=== PATIENT | male | born 1935 | race Caucasian/White ===

== ENCOUNTER 2017-05-15 06:59 | Emergency (ER) | payer OTHER ==
[~2017-05-15] VITALS: Ht 182.8 cm; Wt 108.9 kg
[~2017-05-15 06:59] MED LIST: ARICEPT10 MG PO; ARTIFICIAL TEAR15 M1 OPH; ASPIRIN CHILDRE80 MG PO; ASPIRIN81 M1; B12100 MC1 PO; BACTROBAN CREAM15 GM PO; CHEWABLE ASPIRI81 MG PO; CIPRO500 MG PO; EXEL13.31 T; EYE DROPS; GABARONE100 MG PO; KEFLEX500 MG PO; LAC HYDRIN TP; MAALOX UD SUSP.30 ML PO; MOM30 ML PO; MOTRIN400 MG PO; NAMENDA-28 PO; NAMENDA10 MG PO; NEURONTIN100 MG PO; NORCO 325 MG-51 TAB PO; PRINIVIL5 MG PO; REFRESH LIQUIGE30 ML OP; RISPERDAL0.5 MG PO; RISPERDAL1 M1 PO; RISPERDAL1 MG/ML PO; SEROQUEL50 MG PO; TOBRADEX 0.3-0.15 ML OPH; TYLENOL325 M2 PO; TYLENOL650 MG PO; TYLENOL650 MG R; VICODIN 5/500 505 MG PO; VITAMIN D50000 I2 PO; VITAMIN D50000 UNIT PO; ZANTAC 300300 MG PO; [UNRECOGNIZED DRUG - OTHER] OP
[2017-05-15 07:36] LABS: BILIRUBIN 1+ (NEGATIVE); BLOOD 3+ (NEGATIVE); CLARITY CLOUDY (CLEAR); COLOR YELLOW (YELLOW); GLUCOSE NEGATIVE (NEGATIVE); KETONE NEGATIVE (NEGATIVE); LEUKO ESTERASE 2+ (NEGATIVE); NITRITE NEGATIVE (NEGATIVE); PH 6.5 (5.0-9.0); SPECIFIC GRAVITY 1.015 (1.005-1.030); UROBILINOGEN 0.2 E.U./dl (0.2-1.0)
[2017-05-15 07:38] LABS: HEMOGLOBIN 12.6 g/dl (14.0-18.0); MEAN CELL VOLUME 100.5 fl (80.0-94.0); MEAN CORPUSCULAR HGB 32.5 pg (27.0-31.0); MEAN CORPUSCULAR HGB CONC 32.3 g/dl (33.0-37.0); MEAN PLATELET VOLUME 10.5 fl (9.6-12.3); PLATELET COUNT AUTOMATED 138 10*3/uL (130-400); RED BLOOD COUNT 3.88 10*6/uL (4.50-5.90); RED CELL DISTRI WIDTH 13.1 % (0-14.5)
[2017-05-15 07:44] LABS: BACTERIA 3+; RBC TNTC rbc/hpf (0-2); WBC TNTC wbc/hpf (0-5)
[2017-05-15] MEDS ORDERED: GOOD NEIGHBOR L10 MG PO (07:47)
[2017-05-15] MEDS ORDERED: AQUAPHOR OINTM396 GM T (07:49)
[2017-05-15 07:50] LABS: ACT PARTIAL THROMBO TIME 25.8 SECONDS (20.8-31.5)
[2017-05-15] MEDS ORDERED: RANITIDINE HCL300 M2 PO (07:51)
[2017-05-15 07:52] LABS: ALBUMIN 3.3 gm/dl (3.1-4.5); ALKALINE PHOSPHATASE 84 U/L (45-117); BUN 23 mg/dl (7-24); CHLORIDE 105 mmol/L (98-107); CREATININE 0.89 mg/dL (0.70-1.30); POTASSIUM 3.9 mmol/L (3.5-5.1); SGOT/AST 13 IU/L (3-35); SGPT/ALT 14 U/L (12-78); SODIUM 142 mmol/L (136-145); TOTAL PROTEIN 6.8 gm/dL (6.4-8.2)
[2017-05-15 08:01] LABS: BASOPHILS 1 % (0-1); PLATELET SUFFICIENCY NORMAL (NORMAL); TOTAL CELLS COUNTED 100 #CELLS
[2017-05-15] MEDS ORDERED: SEPTDS PO (08:06)
== END 2017-05-15 08:23 ==
LOC: ED 06:59
PROVIDERS: Student in an Organized Health Care Education/Training Program
DX: S31.31XA Laceration without foreign body of scrotum and testes, initial encounter (principal); N39.0 Urinary tract infection, site not specified; R31.9 Hematuria, unspecified; Z88.0 Allergy status to penicillin; Z88.8 Allergy status to other drugs, medicaments and biological substances; Z79.899 Other long term (current) drug therapy; X58.XXXA Exposure to other specified factors, initial encounter; Y93.89 Activity, other specified; Y92.89 Other specified places as the place of occurrence of the external cause; Y99.8 Other external cause status